=== PATIENT | male | born 1980 | race Caucasian/White ===

== ENCOUNTER → 2017-09-06 | Outpatient (CLI) | payer BC ==
--- NOTE | 2017-09-06 13:08 | XR ---
EXAMINATION TYPE: XR chest 2V DATE OF EXAM: 09/06/2017 COMPARISON: CT angiogram of the chest 07/17/2014 HISTORY: Chest pain, shortness of breath TECHNIQUE: Frontal and lateral views of the chest are obtained. FINDINGS: There is no focal air space opacity, pleural effusion, or pneumothorax seen. The cardiac silhouette size is within normal limits. The osseous structures are intact. IMPRESSION: No acute cardiopulmonary process.
== END | disposition home or self-care (01) ==
LOC: RADXRYALE 12:22
PROVIDERS: ATTEND Physician Assistant Medical
DX: R07.89 Other chest pain (principal)
CPT/HCPCS: 71046

== ENCOUNTER → 2021-08-22 | Outpatient (CLI) | payer BC ==
--- NOTE | 2021-08-22 16:42 | XR ---
Right ankle HISTORY: Pain 3 views the right ankle Bone mineralization, joint spaces and alignment are maintained. No fracture or dislocation. Only mini mal soft tissue swelling present. There is an enthesophyte at insertion of Achilles tendon. IMPRESSION: Soft tissue swelling.
== END | disposition home or self-care (01) ==
LOC: RADXRYALE 15:33
PROVIDERS: ATTEND Physician Assistant Medical
DX: M25.571 Pain in right ankle and joints of right foot (principal); R22.41 Localized swelling, mass and lump, right lower limb

== ENCOUNTER 2021-10-31 15:24 | Emergency (ER) | payer BC ==
[2021-10-31 15:28] VITALS: TEMP 98
[2021-10-31] MEDS ORDERED: KETOROLAC 15 MG/ML 1 ML VIAL IM STA (15:44)
--- NOTE | 2021-10-31 15:45 | ED ---
Extremity Problem HPI - General Chief complaint: Extremity Problem,Nontraumatic Stated complaint: left arm pain,chest and neck pain Time Seen by Provider: 10/31/21 15:39 Source: patient, RN notes reviewed Mode of arrival: ambulatory Limitations: no limitations - History of Present Illness Initial comments: Patient is a 41-year-old male presents to the emergency room with complaints of left shoulder and upper arm pain in which he called his primary care provider regarding and she advised him that if the pain was worsening to go to the emergency room. He does admit to having left arm pain with one episode of radiation into the chest however this was with specific movement and has not recurred since. He reports that movement of his arm elicits pain that has been ongoing for approximately 4-5 days. He did get some relief from Aleve that he took earlier in the day however the pain has been persisting. He denies any trauma, swelling, wounds, range of motion impairment, neuropathy or weakness. He has a past medical history significant for chronic back pain but does not take any medications on a regular basis. - Related Data Home Medications Medication Instructions Recorded Confirmed Aspirin EC [Ecotrin Low Dose] 81 mg PO DAILY 10/31/21 10/31/21 Ibuprofen [Advil] 600 mg PO Q8HR PRN 10/31/21 10/31/21 Allergies Allergy/AdvReac Type Severity Reaction Status Date / Time No Known Allergies Allergy Verified 10/31/21 16:28 Review of Systems ROS Statement: Those systems with pertinent positive or pertinent negative responses have been documented in the HPI. ROS Other: All systems not noted in ROS Statement are negative. Past Medical History Additional Past Medical History / Comment(s): back pain History of Any Multi-Drug Resistant Organisms: None Reported Past Surgical History: Orthopedic Surgery Additional Past Surgical History / Comment(s): left knee Past Psychological History: No Psychological Hx Reported Smoking Status: Never smoker Past Alcohol Use History: None Reported Past Drug Use History: None Reported General Exam Limitations: no limitations General appearance: alert, in no apparent distress Head exam: Present: atraumatic, normocephalic, normal inspection Eye exam: Present: normal appearance, PERRL, EOMI. Absent: scleral icterus, conjunctival injection, periorbital swelling ENT exam: Present: normal exam, mucous membranes moist Neck exam: Present: normal inspection Respiratory exam: Absent: respiratory distress, accessory muscle use Left Shoulder Exam: Present: normal inspection, full ROM. Absent: tenderness, swelling, abrasion, laceration, deformity, crepitus, dislocation, tenderness over AC joint Upper Arm exam: Present: normal inspection, full ROM, tenderness. Absent: swelling, ecchymosis, deformity, crepidus, dislocation, erythema Vascular: Present: vascular compromise Back exam: Present: normal inspection Neurological exam: Present: alert, oriented X3, CN II-XII intact Psychiatric exam: Present: normal affect (She looks like he would expect to), normal mood Skin exam: Present: warm, dry, intact, normal color. Absent: rash Course Vital Signs 10/31/21 10/31/21 15:25 17:50 Temperature 98.0 F Pulse Rate 81 76 Respiratory 14 18 Rate Blood Pressure 142/93 123/91 O2 Sat by Pulse 98 97 Oximetry Medical Decision Making - Medical Decision Making 41-year-old male presents to the emergency room complaining of left upper arm pain worse with movement ongoing for 4-5 days. No trauma. Given the location of pain will check x-ray of the left shoulder and humerus however suspect musculoskeletal strain. Will give Toradol IM and monitor response. X-ray of the right left shoulder and humerus negative for anomalies. Pain improved with Toradol. Will advise conservative management with rest, ice/heat and anti-inflammatory use. Will discharge home with follow-up with his primary care provider. Case discussed with Dr. De Santiago - Radiology Data Radiology results: report reviewed, image reviewed X-ray left humerus left shoulder limited shows no acute fracture or dislocation. Acromicoclavicular and glenohumeral joint spaces. Within normal limits. Disposition Clinical Impression: Biceps tendinitis on left Disposition: HOME SELF-CARE Condition: Stable Additional Instructions: Please utilize ibuprofen or Tylenol [id number] as needed for musculoskeletal pain. Please avoid heavy lifting and range of motion as tolerated as occurs to help improve your muscle strain/tendinitis. Please follow-up with your primary care provider. Please return to the Emergency Depart ment if symptoms worsen or any other concerns. Is patient prescribed a controlled substance at d/c from ED?: No Referrals: Tan Rascon DO [Primary Care Provider] - 1-2 days Time of Disposition: 17:15
--- NOTE | 2021-10-31 16:12 | XR ---
EXAMINATION TYPE: XR humerus LT, XR shoulder limited LT DATE OF EXAM: 10/31/2021 CLINICAL HISTORY: pain TECHNIQUE: Frontal and lateral images of the left humerus are obtained. COMPARISON: None. FINDINGS: There is no acute fracture/dislocation evident. The joint spaces appear within normal limi ts. The overlying soft tissue appears unremarkable. IMPRESSION: There is no acute fracture or dislocation. ICD 10 NO FRACTURE, INITIAL EVALUATION EXAMINATION TYPE: XR humerus LT, XR shoulder limited LT DATE OF EXAM: 10/31/2021 CLINICAL HISTORY: pain COMPARISON: NONE TECHNIQUE: Three views of the left shoulder are obtained. FINDINGS: There is no acute fracture/dislocation evident. The acromioclavicular and glenohumeral flor int spaces appear within normal limits. The visualized ribs are intact and unremarkable. IMPRESSION: 1. There is no acute fracture or dislocation. ICD 10 NO FRACTURE, INITIAL EVALUATION
[2021-10-31 17:51] VITALS: BP 123/91; PULSE 76; RESP 18
== END 2021-10-31 17:51 | disposition home or self-care (01) ==
LOC: EC 15:24
DX: M75.22 Bicipital tendinitis, left shoulder (principal)
CPT/HCPCS: 73020; 73060; 99283; 96372; J1885

== ENCOUNTER 2024-06-03 10:51 | Emergency (ER) | payer BC ==
--- NOTE | 2024-06-03 11:27 | ED ---
Weakness HPI - General Chief complaint: Weakness Stated complaint: weakness, ams Time Seen by Provider: 06/03/24 11:27 Source: patient, RN notes reviewed, old records reviewed Mode of arrival: ambulatory Limitations: no limitations - History of Present Illness Initial comments: 43-year-old male with no significant past medical history presenting to the ER for evaluation of weakness. Patient states he woke up around 6:30 AM had breakfast and watched approximately 2 minutes of TV then apparently fell asleep on his bed. He states he woke up around 9 AM and does not remember falling asleep or the time frame inbetween. Patient states he went into the bathroom and noticed stool in the shower and toilet. He also states shower curtain was down he does not remember how this occurred. Patient currently is complaining of a tight sensation in his back and overall feeling weakness. He denies any current dizziness, lightheadedness, double blurry vision, chest pain, shortness of breath, abdominal pain, urinary complaints or peripheral edema. No recent fevers. Patient denies any daily medication use. Patient does state he smoked marijuana approximately 3 weeks ago. No other drugs or alcohol use. - Related Data Home Medications Medication Instructions Recorded Confirmed No Known Home Medications 06/03/24 06/03/24 Allergies Allergy/AdvReac Type Severity Reaction Status Date / Time No Known Allergies Allergy Verified 06/03/24 11:27 Review of Systems ROS Statement: Those systems with pertinent positive or pertinent negative responses have been documented in the HPI. ROS Other: All systems not noted in ROS Statement are negative. Past Medical History Additional Past Medical History / Comment(s): back pain History of Any Multi-Drug Resistant Organisms: None Reported Past Surgical History: Orthopedic Surgery Additional Past Surgical History / Comment(s): left knee Past Psychological History: No Psychological Hx Reported Smoking Status: Never smoker Past Alcohol Use History: None Reported Past Drug Use History: None Reported General Exam Limitations: no limitations General appearance: alert, in no apparent distress Head exam: Present: atraumatic, normocephalic, normal inspection Eye exam: Present: normal appearance, PERRL, EOMI. Absent: scleral icterus, conjunctival injection, periorbital swelling Pupils: Present: normal accommodation ENT exam: Present: normal exam, normal oropharynx, mucous membranes moist Neck exam: Present: normal inspection. Absent: tenderness, meningismus, lymphadenopathy Respiratory exam: Present: normal lung sounds bilaterally. Absent: respiratory distress, wheezes, rales, rhonchi, stridor Cardiovascular Exam: Present: regular rate, normal rhythm, normal heart sounds. Absent: systolic murmur, diastolic murmur, rubs, gallop, clicks GI/Abdominal exam: Present: soft, normal bowel sounds. Absent: distended, tenderness, guarding, rebound, rigid Extremities exam: Present: normal inspection, full ROM, normal capillary refill. Absent: tenderness, pedal edema, joint swelling, calf tenderness Neurological exam: Present: alert, oriented X3, CN II-XII intact, other (NIH 0.) Skin exam: Present: warm, dry, intact, normal color. Absent: rash Course Vital Signs 06/03/24 06/03/24 06/03/24 10:59 11:37 13:26 Temperature 97.4 F L 98.2 F 98.4 F Pulse Rate 102 H 98 97 Respiratory 20 17 17 Rate Blood Pressure 130/74 128/86 119/91 O2 Sat by Pulse 96 96 96 Oximetry 06/03/24 06/03/24 15:00 17:08 Temperature 97.9 F 98.0 F Pulse Rate 99 94 Respiratory 17 17 Rate Blood Pressure 128/85 132/87 O2 Sat by Pulse 96 98 Oximetry EKG Findings - EKG Comments: EKG Findings:: EKG taken at 11: 07 showing a sinus tachycardia. No ST segment elevations or depressions. No T wave inversions. Ventricular rate 100, CO interval 147, QRS duration 102, QT/QTc 339/396. Medical Decision Making - Medical Decision Making Was pt. sent in by a medical professional or institution (, PA, [employer], urgent care, hospital, or retirement...) When possible be specific @ -No Did you speak to anyone other than the patient for history (EMS, parent, family, police, friend...)? What history was obtained from this source @ -No Did you review nursing and triage notes (agree or disagree)? Why? @ -I reviewed and agree with nursing and triage notes Were old charts reviewed (outside hosp., previous admission, EMS record, old EKG, old radiological studies, urgent care reports/EKG's, retirement records)? Report findings @ -No old charts were reviewed Differential Diagnosis (chest pain, altered mental status, abdominal pain women, abdominal pain men, vaginal bleeding, weakness, fever, dyspnea, syncope, headache, dizziness, GI bleed, back pain, seizure, CVA, palpatations, mental health, musculoskeletal)? @ -Differential Syncope:Valvular disease, hypertrophic cardiomyopathy, pulmonary embolism, tamponade, tachycardia, bradycardia, NM, hypovolemia, hemorrhage, dissection, anemia, intracranial hemorrhage, seizure, hypoglycemia, carbon monoxide poisoning, this is not meant to be an all-inclusive list. EKG interpreted by me (3pts min.). @ -As above X-rays interpreted by me (1pt min.). @ -CXR interpreted me negative for acute cardiopulmonary process. CT interpreted by me (1pt min.). @ -CT brain negative for acute intracranial process. U/S interpreted by me (1pt. min.). @ -None done What testing was considered but not performed or refused? (CT, X-rays, U/S, labs)? Why? @ -None What meds were considered but not given or refused? Why? @ -None Did you discuss the management of the patient with other professionals (professionals i.e. , PA, [employer], lab, RT, psych nurse, social insurance analyst, central processing technician, teacher, credit risk review officer, outsole caser)? Give summary @ -No Was smoking cessation discussed for >3mins.? @ -No Was critical care preformed (if so, how long)? @ -No Were there social determinants of health that impacted care today? How? (Homelessness, low income, unemployed, alcoholism, drug addiction, transportation, low edu. Level, literacy, decrease access to med. care, longterm, rehab)? @ -No Was there de-escalation of care discussed even if they declined (Discuss DNR or withdrawal of care, Hospice)? DNR status @ -No What co-morbidities impacted this encounter? (DM, HTN, Smoking, COPD, CAD, Cancer, CVA, ARF, Chemo, Hep., AIDS, mental health diagnosis, sleep apnea, morbid obesity)? @ -None Was patient admitted / discharged? Hospital course, mention meds given and route, prescriptions, significant lab abnormalities, going to OR and other pertinent info. @ -Discharge. 43-year-old male presented the ER for evaluation of weakness with possible syncope. Upon rooming, history and physical exam completed. Vitals acceptable limits. Patient in no signs of acute distress nontoxic- appearing. No acute neurological findings on exam. NIH 0. GCS 15. Laboratory studies obtained showed a leukocytosis 17.9 with a left shift. CMP showing no significant electrolyte abnormality or acidosis. Lactic 1.5. Troponin undetectable. Urinalysis unremarkable. Viral swabs negative. CT brain and chest x-ray negative for acute process. Upon reevaluation, patient sleeping in exam room no signs of acute distress. Patient reporting he feels "fine". Results discussed with patient, all questions answered. Patient will be discharged in stable condition with follow-up to PCP. Strict return parameters discussed. Patient discharged stable condition. Patient verbally expressed understanding agreement with care plan. Case discussed with ED attending of Dr. Cleaning. Undiagnosed new problem with uncertain prognosis? @ -No Drug Therapy requiring intensive monitoring for toxicity (Heparin, Nitro, Insulin, Cardizem)? @ -No Were any procedures done? @ -No Diagnosis/symptom? @ -Syncope Acute, or Chronic, or Acute on Chronic? @ -Acute Uncomplicated (without systemic symptoms) or Complicated (systemic symptoms)? @ -Uncomplicated Side effects of treatment? @ -No Exacerbation, Progression, or Severe Exacerbation? @ -No Poses a threat to life or bodily function? How? (Chest pain, USA, NM, pneumonia, PE, COPD, DKA, ARF, appy, cholecystitis, CVA, Diverticulitis, Homicidal, Suicidal, threat to staff... and all critical care pts) @ -No - Lab Data Result diagrams: 06/03/24 11:36 06/03/24 11:36 Lab Results 06/03/24 06/03/24 06/03/24 Range/Units 11:36 11:36 11:36 WBC 17.9 H (3.8-10.6) k/uL RBC 5.71 (4.30-5.90) m/uL Hgb 16.1 (13.0-17.5) gm/dL Hct 50.3 (39.0-53.0) % MCV 88.0 (80.0-100.0) fL MCH 28.1 (25.0-35.0) pg MCHC 32.0 (31.0-37.0) g/dL RDW 13.4 (11.5-15.5) % Plt Count 232 (150-450) k/uL MPV 8.7 Neutrophils % 92 % Lymphocytes % 3 % Monocytes % 4 % Eosinophils % 1 % Basophils % 0 % Neutrophils # 16.4 H (1.3-7.7) k/uL Lymphocytes # 0.5 L (1.0-4.8) k/uL Monocytes # 0.6 (0-1.0) k/uL Eosinophils # 0.1 (0-0.7) k/uL Basophils # 0.1 (0-0.2) k/uL PT (10.0-12.5) sec INR (<1.2) APTT (22.0-30.0) sec Sodium 137 (137-145) mmol/L Potassium 4.3 (3.5-5.1) mmol/L Chloride 107 (98-107) mmol/L Carbon Dioxide 21 L (22-30) mmol/L Anion Gap 9 mmol/L BUN 20 (9-20) mg/dL Creatinine 1.02 (0.66-1.25) mg/dL Est GFR (CKD-EPI)AfAm >90 (>60 ml/min/1.73 sqM) Est GFR (CKD-EPI)NonAf 90 (>60 ml/min/1.73 sqM) Glucose 132 H (74-99) mg/dL Plasma Lactic Acid Dave (0.7-2.0) mmol/L Calcium 9.1 (8.4-10.2) mg/dL Magnesium 2.1 (1.6-2.3) mg/dL Total Bilirubin 0.4 (0.2-1.3) mg/dL AST 30 (17-59) U/L ALT 45 (4-49) U/L Alkaline Phosphatase 63 (38-126) U/L Troponin I (0.000-0.034) ng/mL Total Protein 7.2 (6.3-8.2) g/dL Albumin 4.5 (3.5-5.0) g/dL Amylase (30-110) U/L Lipase (23-300) U/L Urine Color Colorless Urine Appearance Turbid (Clear) Urine pH 5.0 (5.0-8.0) Ur Specific [place] 1.021 (1.001-1.035) Urine Protein Negative (Negative) Urine Glucose (UA) Negative (Negative) Urine Ketones Negative (Negative) Urine Blood Negative (Negative) Urine Nitrite Negative (Negative) Urine Bilirubin Negative (Negative) Urine Urobilinogen <2.0 (<2.0) mg/dL Ur Leukocyte Esterase Negative (Negative) Urine WBC 3 (0-5) /hpf Urine Mucus Rare H (None) /hpf Influenza Type A (PCR) (Not Detectd) Influenza Type B (PCR) (Not Detectd) RSV (PCR) (Not Detectd) SARS-CoV-2 (PCR) (Not Detectd) 06/03/24 06/03/24 06/03/24 Range/Units 11:36 11:36 11:36 WBC (3.8-10.6) k/uL RBC (4.30-5.90) m/uL Hgb (13.0-17.5) gm/dL Hct (39.0-53.0) % MCV (80.0-100.0) fL MCH (25.0-35.0) pg MCHC (31.0-37.0) g/dL RDW (11.5-15.5) % Plt Count (150-450) k/uL MPV Neutrophils % % Lymphocytes % % Monocytes % % Eosinophils % % Basophils % % Neutrophils # (1.3-7.7) k/uL Lymphocytes # (1.0-4.8) k/uL Monocytes # (0-1.0) k/uL Eosinophils # (0-0.7) k/uL Basophils # (0-0.2) k/uL PT 11.1 (10.0-12.5) sec INR 1.0 (<1.2) APTT 22.2 (22.0-30.0) sec Sodium (137-145) mmol/L Potassium (3.5-5.1) mmol/L Chloride (98-107) mmol/L Carbon Dioxide (22-30) mmol/L Anion Gap mmol/L BUN (9-20) mg/dL Creatinine (0.66-1.25) mg/dL Est GFR (CKD-EPI)AfAm (>60 ml/min/1.73 sqM) Est GFR (CKD-EPI)NonAf (>60 ml/min/1.73 sqM) Glucose (74-99) mg/dL Plasma Lactic Acid Dave (0.7-2.0) mmol/L Calcium (8.4-10.2) mg/dL Magnesium (1.6-2.3) mg/dL Total Bilirubin (0.2-1.3) mg/dL AST (17-59) U/L ALT (4-49) U/L Alkaline Phosphatase (38-126) U/L Troponin I <0.012 (0.000-0.034) ng/mL Total Protein (6.3-8.2) g/dL Albumin (3.5-5.0) g/dL Amylase (30-110) U/L Lipase (23-300) U/L Urine Color Urine Appearance (Clear) Urine pH (5.0-8.0) Ur Specific [place] (1.001-1.035) Urine Protein (Negative) Urine Glucose (UA) (Negative) Urine Ketones (Negative) Urine Blood (Negative) Urine Nitrite (Negative) Urine Bilirubin (Negative) Urine Urobilinogen (<2.0) mg/dL Ur Leukocyte Esterase (Negative) Urine WBC (0-5) /hpf Urine Mucus (None) /hpf Influenza Type A (PCR) Not Detected (Not Detectd) Influenza Type B (PCR) Not Detected (Not Detectd) RSV (PCR) Not Detected (Not Detectd) SARS-CoV-2 (PCR) Not Detected (Not Detectd) 06/03/24 06/03/24 Range/Units 11:36 13:26 WBC (3.8-10.6) k/uL RBC (4.30-5.90) m/uL Hgb (13.0-17.5) gm/dL Hct (39.0-53.0) % MCV (80.0-100.0) fL MCH (25.0-35.0) pg MCHC (31.0-37.0) g/dL RDW (11.5-15.5) % Plt Count (150-450) k/uL MPV Neutrophils % % Lymphocytes % % Monocytes % % Eosinophils % % Basophils % % Neutrophils # (1.3-7.7) k/uL Lymphocytes # (1.0-4.8) k/uL Monocytes # (0-1.0) k/uL Eosinophils # (0-0.7) k/uL Basophils # (0-0.2) k/uL PT (10.0-12.5) sec INR (<1.2) APTT (22.0-30.0) sec Sodium (137-145) mmol/L Potassium (3.5-5.1) mmol/L Chloride (98-107) mmol/L Carbon Dioxide (22-30) mmol/L Anion Gap mmol/L BUN (9-20) mg/dL Creatinine (0.66-1.25) mg/dL Est GFR (CKD-EPI)AfAm (>60 ml/min/1.73 sqM) Est GFR (CKD-EPI)NonAf (>60 ml/min/1.73 sqM) Glucose (74-99) mg/dL Plasma Lactic Acid Dave 1.5 (0.7-2.0) mmol/L Calcium (8.4-10.2) mg/dL Magnesium (1.6-2.3) mg/dL Total Bilirubin (0.2-1.3) mg/dL AST (17-59) U/L ALT (4-49) U/L Alkaline Phosphatase (38-126) U/L Troponin I (0.000-0.034) ng/mL Total Protein (6.3-8.2) g/dL Albumin (3.5-5.0) g/dL Amylase 71 (30-110) U/L Lipase 85 (23-300) U/L Urine Color Urine Appearance (Clear) Urine pH (5.0-8.0) Ur Specific [place] (1.001-1.035) Urine Protein (Negative) Urine Glucose (UA) (Negative) Urine Ketones (Negative) Urine Blood (Negative) Urine Nitrite (Negative) Urine Bilirubin (Negative) Urine Urobilinogen (<2.0) mg/dL Ur Leukocyte Esterase (Negative) Urine WBC (0-5) /hpf Urine Mucus (None) /hpf Influenza Type A (PCR) (Not Detectd) Influenza Type B (PCR) (Not Detectd) RSV (PCR) (Not Detectd) SARS-CoV-2 (PCR) (Not Detectd) Disposition Clinical Impression: Syncope Disposition: HOME SELF-CARE Condition: Stable Additional Instructions: Follow-up with PCP. Return to the ER for any new or worsening concerns. Is patient prescribed a controlled substance at d/c from ED?: No Referrals: Tan Rascon DO [Primary Care Provider] - 1-2 days Time of Disposition: 16:23
[2024-06-03 11:42] VITALS: RESP 17
[2024-06-03 11:50] LABS: Basophils # (A) 0.1 k/uL (0-0.2); Basophils % (A) 0 %; Eosinophils # (A) 0.1 k/uL (0-0.7); Eosinophils % (A) 1 %; HCT 50.3 % (39.0-53.0); HGB 16.1 gm/dL (13.0-17.5); Lymphocytes # (A) 0.5 k/uL (1.0-4.8); Lymphocytes % (A) 3 %; MCH 28.1 pg (25.0-35.0); Mean Platelet Volume 8.7; Monocytes # (A) 0.6 k/uL (0-1.0); Monocytes % (A) 4 %; Neutrophils # (A) 16.4 k/uL (1.3-7.7); Neutrophils % (A) 92 %; Platelet Count 232 k/uL (150-450); RBC 5.71 m/uL (4.30-5.90); RDW 13.4 % (11.5-15.5); WBC 17.9 k/uL (3.8-10.6)
[2024-06-03 11:53] LABS: Partial Thromboplastin Time 22.2 sec (22.0-30.0); Prothrombin Time 11.1 sec (10.0-12.5)
[2024-06-03 11:56] LABS: ALT 45 U/L (4-49); AST 30 U/L (17-59); African American GFR (CKD) >90 (>60 ml/min/1.73 sqM); Albumin 4.5 g/dL (3.5-5.0); Alkaline Phosphatase 63 U/L (38-126); Anion Gap 9 mmol/L; Blood Urea Nitrogen 20 mg/dL (9-20); Calcium 9.1 mg/dL (8.4-10.2); Carbon Dioxide 21 mmol/L (22-30); Chloride 107 mmol/L (98-107); Glucose 132 mg/dL (74-99); Magnesium 2.1 mg/dL (1.6-2.3); Non-African American GFR(CKD) 90 (>60 ml/min/1.73 sqM); Potassium 4.3 mmol/L (3.5-5.1); Sodium 137 mmol/L (137-145); Total Bilirubin 0.4 mg/dL (0.2-1.3); Total Protein 7.2 g/dL (6.3-8.2)
[2024-06-03 12:21] LABS: Influenza A Not Detected (Not Detectd); Influenza B Not Detected (Not Detectd); RSV Not Detected (Not Detectd)
[2024-06-03 12:28] LABS: Amylase 71 U/L (30-110); Lipase 85 U/L (23-300)
--- NOTE | 2024-06-03 12:28 | XR ---
EXAMINATION TYPE: XR chest 2V DATE OF EXAM: 06/03/2024 CLINICAL INDICATION: Male, 43 years old with history of syncope, TECHNIQUE: Frontal and lateral views of the chest are obtained. COMPARISON: Chest x-ray July 07, 2022 FINDINGS: There is no focal air space opacity, pleural effusion, or pneumothorax seen. The cardiac silhouette size remains within normal limits. The osseous structures are intact. Overlying EKG lead s are redemonstrated. IMPRESSION: No acute cardiopulmonary process. [facility], , 06/03/2024 12:25 PM
--- NOTE | 2024-06-03 12:48 | CT ---
EXAMINATION TYPE: CT brain wo con DATE OF EXAM: 06/03/2024 12:16 PM COMPARISON: None. CLINICAL INDICATION: Male, 43 years old with history of weakness, weakness and ams TECHNIQUE: Brain: Axial CT images of the brain were obtained with coronal and sagittal reformats created and rev iewed. Contrast used: None. Oral contrast used: None. CT DLP: 1227.4 mGycm, Automated exposure control for dose reduction was used. FINDINGS: Brain: Extra-axial spaces: No abnormal extra-axial fluid collections. Ventricular system: Within normal limits Cerebral parenchyma: No acute intraparenchymal hemorrhage or mass effect. The tejeda-white junction is well differentiated. Cerebellum: Unremarkable. Mass effect: No evidence of midline shift. Intracranial vasculature: unremarkable Soft tissues: Normal. Calvarium/osseous structures: No depressed skull fracture. Paranasal sinuses and mastoid air cells: Mild scattered paranasal sinus disease. Visualized orbits: Orbital contents are intact. IMPRESSION: No acute intracranial process. [facility], , 06/03/2024 12:46 PM
[2024-06-03 16:01] LABS: Appearance,Urine Turbid (Clear); Bilirubin,Urine Negative (Negative); Blood,Urine Negative (Negative); Color,Urine Colorless; Glucose,Urine (UA) Negative (Negative); Ketones,Urine Negative (Negative); Leukocyte Esterase,Urine Negative (Negative); Mucus,Urine Rare /hpf; Nitrite,Urine Negative (Negative); Protein,Urine Negative (Negative); Specific Gravity,Urine 1.021 (1.001-1.035); Urobilinogen,Urine <2.0 mg/dL (<2.0); WBC,Urine 3 /hpf (0-5)
[2024-06-03 17:10] VITALS: BP 132/87; PULSE 94; TEMP 98
== END 2024-06-03 17:11 | disposition home or self-care (01) ==
LOC: EC 10:51
DX: R55 Syncope and collapse (principal); Z11.52 Encounter for screening for COVID-19; W06.XXXA Fall from bed, initial encounter
CPT/HCPCS: 36415; 70450; 71046; 80053; 81001; 82150; 83605; 83690; 83735; 84484; 85025; 85610; 85730; 87636; 99285